=== PATIENT | female | born 1985 | race Two or more races ===

== ENCOUNTER 2017-01-17 08:39 | Inpatient (IN) | payer SELFPAY ==
[2017-01-17] MEDS ORDERED: D5LR 1000ML W PITOCIN 10 U/L 1,000 ML IV ONE (08:43)
[2017-01-17] MEDS ORDERED: D5 1/2 NS 1000ML W PITOCIN 20 U/L 1,000 ML IV ONE (08:44)
[2017-01-17] MEDS ORDERED: D5 1/2 NS 1000 ML 1,000 ML IV ONE (08:44)
[2017-01-17] MEDS ORDERED: PHENERGAN INJ 25 MG IV PRN ×2 (08:55→17:58)
[2017-01-17] MEDS ORDERED: MORPHINE SULFATE INJ 2 MG IVP PRN (08:55)
[2017-01-17] MEDS ORDERED: REGLAN INJ 10 MG VIAL IVP PRN (08:55)
[2017-01-17] MEDS ORDERED: NUBAIN INJ 200 MG VIAL MULTIDOSE IVP PRN (08:55)
[2017-01-17] MEDS ORDERED: PITOCIN IVP ONE (08:55)
[2017-01-17] MEDS ORDERED: PITOCIN 10 UNITS in D5 LR 1000 ML 1,000 ML IV PRN (08:55)
[2017-01-17] MEDS: D5 1/2 NS 1000 ML 1,000 ML IV SCH ×2 (09:00→18:06)
[2017-01-17 09:39] LABS: BASOPHILS % (AUTO) 0.5 % (0.2-1.0); EOSINOPHILS # (AUTO) 0.1 x10^3/uL (0.0-0.2); EOSINOPHILS % (AUTO) 1.1 % (0.9-2.9); HEMOGLOBIN 10.7 g/dL (12.0-16.0); LYMPHOCYTES # (AUTO) 1.9 X10^3/uL (1.3-2.9); LYMPHOCYTES % (AUTO) 24.3 % (21.0-51.0); MEAN CORPUSCULAR HEMOGLOBIN 24.8 pg (27.0-34.0); MEAN CORPUSCULAR HGB CONC 33.4 g/dL (33.0-35.0); MEAN CORPUSCULAR VOLUME 74.3 fL (80.0-100.0); MEAN PLATELET VOLUME 7.2 fL (7.4-11.0); MONOCYTES # (AUTO) 0.4 x10^3/uL (0.3-0.8); MONOCYTES % (AUTO) 5.4 % (0.0-13.0); NEUTROPHILS # (AUTO) 5.4 x10^3/uL (2.2-4.8); NEUTROPHILS % (AUTO) 68.7 % (42.0-75.0); PLATELET COUNT 251 X10^3/uL (150.0-450.0); RED CELL DISTRIBUTION WIDTH 15.7 % (11.6-16.5); WHITE BLOOD COUNT 7.8 X10^3/uL (3.6-10.0)
[2017-01-17 09:42] LABS: BLOOD UREA NITROGEN 7 mg/dL (7-18); CALCIUM 8.3 mg/dL (8.5-10.1); CHLORIDE 106 mmol/L (98-107); CREATININE 0.48 mg/dL (0.55-1.02); GLUCOSE 82 mg/dL (65-99); SODIUM 140 mmol/L (136-145); eGFR BLACK RACES > 60 (>60); eGFR NON BLACK RACES > 60 (>60)
[2017-01-17 09:49] LABS: BILIRUBIN,URINE NEGATIVE (NEGATIVE); BLOOD/HEMOGLOBIN,URINE 5+ (NEGATIVE); GLUCOSE, URINE NEGATIVE (NEGATIVE); KETONES,URINE 1+ (NEGATIVE); LEUKOCYTE ESTERASE ,URINE 2+ (NEGATIVE); NITRITES,URINE NEGATIVE (NEGATIVE); PROTEIN,URINE 2+ (NEGATIVE); UROBILINOGEN,URINE NORMAL (NORMAL)
[2017-01-17 09:50] LABS: APPEARANCE,URINE HAZY (CLEAR); BACTERIA,URINE TRACE /HPF (NEGATIVE); COLOR,URINE YELLOW (YELLOW); SQUAMOUS EPITHELIAL CELL,UR RARE /HPF (NEGATIVE)
[2017-01-17 10:32] LABS: HYPOCHROMASIA SLIGHT; MICROCYTOSIS 1+; PLATELET MORPHOLOGY COMMENT NORMAL (NORMAL)
[2017-01-17] MEDS ORDERED: LR 1000 ML IV 1,000 ML IV ONE ×2 (11:28→12:00)
[2017-01-17] MEDS ORDERED: NAROPIN EPIDURAL 0.2% 97 ML with FENTANYL INJ 250 mcg 150 MCG EPI PRN ×2 (11:28)
[2017-01-17] MEDS ORDERED: NAROPIN EPIDURAL 0.2% + FENTANYL 90MCG 60 ML EPI ONE (12:00)
[2017-01-17] MEDS ORDERED: FENTANYL INJ 100 mcg ONE (12:00)
[2017-01-17] MEDS ORDERED: MOTRIN TAB 800 MG PO ONE (17:54)
[2017-01-17] MEDS ORDERED: MOTRIN TAB 800 MG PO PRN (17:58)
[2017-01-17] MEDS ORDERED: AMBIEN PO PRN (18:02)
[2017-01-17] MEDS ORDERED: MILK OF MAGNESIA PO PRN (18:02)
[2017-01-17] MEDS ORDERED: DERMOPLAST SPRAY TOP PRN (18:02)
[2017-01-17] MEDS: D5 1/2 NS 1000 ML 1,000 ML with PITOCIN 20 UNITS IV SCH ×4 (18:04→20:00)
[2017-01-17] MEDS: MOTRIN TAB 800 MG PO PRN (18:04)
[2017-01-17] MEDS: ZANTAC PO SCH (20:55)
[2017-01-18] MEDS: MOTRIN TAB 800 MG PO PRN (02:04)
[2017-01-18 05:18] LABS: HEMATOCRIT 29.4 % (36.0-47.0); HEMOGLOBIN 9.8 g/dL (12.0-16.0)
[2017-01-18] MEDS: ZANTAC PO SCH ×2 (08:42→21:17)
[2017-01-18] MEDS: PRENATAL PLUS PO SCH (08:42)
[2017-01-18] MEDS ORDERED: NS 100 ML IV 100 ML with VENOFER 400 MG IV NR ×2 (09:00)
[2017-01-18] MEDS ORDERED: NS 500 ML IV 500 ML IV ONE (10:14)
[2017-01-18] MEDS: D5 1/2 NS 1000 ML 1,000 ML with PITOCIN 20 UNITS IV SCH ×4 (17:50→18:10)
[2017-01-19] MEDS: D5 1/2 NS 1000 ML 1,000 ML with PITOCIN 20 UNITS IV SCH ×2 (03:16)
[2017-01-19] MEDS: PRENATAL PLUS PO SCH (09:45)
[2017-01-19] MEDS: ZANTAC PO SCH (09:46)
[2017-01-19 10:02] VITALS: BP 101/57
== END 2017-01-19 11:50 | disposition home or self-care (01) | DRG 775 ==
LOC: LD 08:39 → MED/SURG 18:21
PROVIDERS: ADMIT Obstetrics & Gynecology Obstetrics; ATTEND Obstetrics & Gynecology Obstetrics
PROC: 10E0XZZ Delivery of Products of Conception, External Approach (ICD-10-PCS; principal; 2017-01-17)
PROC: 10907ZC Drainage of Amniotic Fluid, Therapeutic from Products of Conception, Via Natural or Artificial Opening (ICD-10-PCS; 2017-01-17)
PROC: 3E033VJ Introduction of Other Hormone into Peripheral Vein, Percutaneous Approach (ICD-10-PCS; 2017-01-17)
PROC: 00HU33Z Insertion of Infusion Device into Spinal Canal, Percutaneous Approach (ICD-10-PCS; 2017-01-17)
DX: O12.03 Gestational edema, third trimester (principal); Z37.0 Single live birth; Z3A.39 39 weeks gestation of pregnancy
CPT/HCPCS: 09167; 36415; 59409; 80048; 81001; 85014; 85018; 85025; 86592; 86850; 86900; 86901; A4216; A4222; S0197; J2590; J3010; J7042; J7120

== ENCOUNTER 2023-04-20 10:28 | Inpatient (IN) ==
[2023-04-20] MEDS ORDERED: NS 1,000 ML IV 1,000 ML IV ONE (11:00)
[2023-04-20] MEDS ORDERED: NS 1,000 ML IV 1,000 ML ONE (11:01)
[2023-04-20 11:02] VITALS: BMI 43.0
[2023-04-20 11:10] LABS: BILIRUBIN,URINE NEGATIVE (NEGATIVE); BLOOD/HEMOGLOBIN,URINE 1+ (NEGATIVE); GLUCOSE, URINE NEGATIVE (NEGATIVE); KETONES,URINE NEGATIVE (NEGATIVE); LEUKOCYTE ESTERASE ,URINE 1+ (NEGATIVE); NITRITES,URINE NEGATIVE (NEGATIVE); PROTEIN,URINE 1+ (NEGATIVE); UROBILINOGEN,URINE NORMAL (NORMAL)
[2023-04-20 11:19] LABS: APPEARANCE,URINE CLEAR (CLEAR); BACTERIA,URINE TRACE /HPF (NEGATIVE); COLOR,URINE YELLOW (YELLOW); RBC,URINE 0-2 /HPF (0-3); SQUAMOUS EPITHELIAL CELL,UR FEW /HPF (NEGATIVE)
[2023-04-20 11:26] LABS: AMNISURE ROM TEST NO MEMBRANES RUPTURE (NO RUPTURE)
[2023-04-20] MEDS: STADOL INJ IVP PRN ×2 (11:42→20:38)
--- NOTE | 2023-04-20 12:14 | US ---
[id number] WK GEST. WITH PAINSTUDYFETAL AGE COMP 14+ [id number]/28/2023TECHNIQUEMultip le de guzman scale and color flow Doppler images of the pelvis were obtained with focused evaluation of the fetus.FINDINGSA viable single intrauterine is identified with heart tones of 132 beats per minute. A cephalic presentation is observed with a anterior and fundal placenta. Very low amniotic fluid volume is observed. Evaluation of the anatomy including the stomach, kidneys, urinary bladder, and four-chamber heart are unremarkable. The extremities and spine are normal in their sonographic appearance. A three-vessel cord is observed. The umbilical cord inserts into the abdomen. No intracranial abnormality can be identified. Estimated weight is 3158 grams.The BPD is 8.9 cm corresponding to and estimated gestational age of 36 weeks 2 days.The HC is 32.9 cm corresponding to and estimated gestational age of 37 weeks 3 days.The AC is 33.6 cm corresponding to and estimated gestational age of 37 weeks 4 days.The FL is 7.2 cm corresponding to and estimated gestational age of 37 weeks 0 days.IMPRESSIONA viable single intrauterine with an average ultrasound age of 37 weeks 1 day correspond to an estimated date of delivery of 05/10/2023.Markedly low amniotic fluid volume with oligohydramnios.No anatomical abnormalities can be identified.Electronically signed by: SKYLAR ROBB (Apr 20, 2023 12:12:49)
[2023-04-20] MEDS ORDERED: REGLAN INJ 10 MG VIAL IVP PRN (13:58)
[2023-04-20] MEDS ORDERED: D5 LR + PITOCIN 10 UNITS/L 10 UNITS/1,000 ML BAG IV PRN (13:58)
[2023-04-20] MEDS ORDERED: ZOFRAN INJ 4 MG VIAL IVP PRN (13:58)
[2023-04-20] MEDS ORDERED: PITOCIN IVP ONE (13:58)
[2023-04-20] MEDS ORDERED: AMPICILLIN VIAL 2 GRAM 2 G in NS 100 ML IV + SPIKE MINIBAG* 100 ML IV SCH (14:00)
[2023-04-20] MEDS: D5 1/2 NS 1,000 ML 1,000 ML IV SCH (14:30)
[2023-04-20 14:43] LABS: BASOPHILS % (AUTO) 0.4 % (0.2-1.0); EOSINOPHILS % (AUTO) 0.5 % (0.9-2.9); HEMATOCRIT 33.5 % (36.0-47.0); HEMOGLOBIN 11.2 g/dL (12.0-16.0); LYMPHOCYTES # (AUTO) 1.6 X10^3/uL (1.3-2.9); LYMPHOCYTES % (AUTO) 17.2 % (21.0-51.0); MEAN CORPUSCULAR HEMOGLOBIN 25.6 pg (27.0-34.0); MEAN CORPUSCULAR HGB CONC 33.4 g/dL (33.0-35.0); MEAN CORPUSCULAR VOLUME 76.8 fL (80.0-100.0); MEAN PLATELET VOLUME 7.1 fL (7.4-11.0); MONOCYTES # (AUTO) 0.5 x10^3/uL (0.3-0.8); MONOCYTES % (AUTO) 4.9 % (0.0-13.0); NEUTROPHILS # (AUTO) 7.2 x10^3/uL (2.2-4.8); PLATELET COUNT 264 X10^3/uL (150.0-450.0); RED BLOOD COUNT 4.36 X10^6/uL (3.5-5.4); WHITE BLOOD COUNT 9.3 X10^3/uL (3.6-10.0)
[2023-04-20] MEDS ORDERED: CYTOTEC ONE (14:43)
[2023-04-20 14:54] LABS: BLOOD UREA NITROGEN 6 mg/dL (7-18); CALCIUM 8.3 mg/dL (8.5-10.1); CARBON DIOXIDE 21.7 mmol/L (21-32); CHLORIDE 106 mmol/L (98-107); CREATININE 0.56 mg/dL (0.55-1.02); GLUCOSE 86 mg/dL (65-99); POTASSIUM 3.5 mmol/L (3.5-5.1); SODIUM 140 mmol/L (136-145); eGFR NON BLACK RACES > 60 (>60)
[2023-04-20] MEDS ORDERED: AMPICILLIN VIAL 2 GRAM 2 G in NS 100 ML IV 100 ML IV SCH (15:00)
[2023-04-20] MEDS ORDERED: CYTOTEC VG SCH (15:00)
[2023-04-20] MEDS ORDERED: NS 100 ML IV 100 ML ONE ×3 (15:08→22:32)
[2023-04-20] MEDS ORDERED: AMPICILLIN VIAL 2 GRAM ONE (15:08)
[2023-04-20] MEDS ORDERED: AMPICILLIN VIAL 1 GRAM ONE ×2 (19:03→22:32)
[2023-04-20] MEDS ORDERED: STADOL INJ ONE ×2 (20:38→23:38)
[2023-04-20] MEDS: AMPICILLIN VIAL 1 GRAM 1 G in NS 100 ML IV 100 ML IV SCH (23:00)
[2023-04-21] MEDS ORDERED: PITOCIN ONE (01:00)
[2023-04-21] MEDS ORDERED: NS 1,000 ML IV 1,000 ML ONE (01:01)
[2023-04-21] MEDS ORDERED: FENTANYL VIAL INJ 100 mcg ONE (01:42)
[2023-04-21] MEDS ORDERED: NAROPIN EPIDURAL 0.2% 100 ML ONE (01:44)
[2023-04-21] MEDS ORDERED: AQUA-MEPHYTON NEONATAL IM ONE (02:28)
[2023-04-21] MEDS ORDERED: ILOTYCIN OPHTH OINT ONE (02:28)
[2023-04-21] MEDS ORDERED: MILK OF MAGNESIA PO PRN (03:46)
[2023-04-21] MEDS ORDERED: DERMOPLAST PAIN RELIEF SPRAY TOP PRN (03:46)
[2023-04-21] MEDS ORDERED: AMBIEN PO PRN (03:46)
[2023-04-21 05:58] LABS: HEMATOCRIT 29.6 % (36.0-47.0); HEMOGLOBIN 10.3 g/dL (12.0-16.0)
[2023-04-21] MEDS: PRENATAL PLUS PO SCH (08:45)
[2023-04-21] MEDS: AMPICILLIN VIAL 1 GRAM 1 G in NS 100 ML IV 100 ML IV SCH ×2 (11:15→11:16)
[2023-04-21] MEDS: D5 1/2 NS 1,000 ML 1,000 ML IV SCH ×4 (11:20→23:48)
[2023-04-21] MEDS: MOTRIN TAB 800 MG PO PRN (15:17)
[2023-04-22] MEDS: MOTRIN TAB 800 MG PO PRN (03:30)
[2023-04-22] MEDS: PRENATAL PLUS PO SCH (08:00)
[2023-04-22 08:08] VITALS: BP 113/64; PULSE 74; RESP 18; TEMP 98.1; O2SAT 98
== END 2023-04-22 11:30 | disposition home or self-care (01) | DRG 807 ==
LOC: ER 10:28 → LD 13:59 → MED/SURG 04-21 05:08
PROVIDERS: ADMIT Obstetrics & Gynecology Obstetrics; ATTEND Obstetrics & Gynecology Obstetrics
DX: Z3A.38 38 weeks gestation of pregnancy; Z37.0 Single live birth; O41.03X0 Oligohydramnios, third trimester, not applicable or unspecified